=== PATIENT | female | born 1985 | race African-American/Black ===

== ENCOUNTER 2016-04-27 13:00 | Emergency (ER) | payer OTHER ==
[~2016-04-27] VITALS: Ht 147.3 cm; Wt 47.6 kg
--- NOTE | 2016-04-27 13:49 | PHYS DOC ---
Past Medical History Past Medical History: Constipation Past Surgical History: Alcohol Use: None Drug Use: Marijuana, Methamphetamine Social History Narrative: in detox x 3-4 days Adult General Chief Complaint Chief Complaint: CONSTIPATION HPI HPI 30-year-old female who states she has not had a bowel movement for the last week. She states she is passing gas but is having difficulty and straining on the toilet. She denies any blood or rectal pain. She denies any nausea or vomiting. She does state she has some mild lower pain has been there for the last several days. She can trying softeners without relief. She does state she has history of chronic constipation. 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 She denies any recent narcotic use. Review of Systems Review of Systems Constitutional: Denies fever or chills [] Eyes: Denies change in visual acuity, redness, or eye pain [] HENT: Denies nasal congestion or sore throat [] Respiratory: Denies cough or shortness of breath [] Cardiovascular: No additional information not addressed in HPI [] GI: Has abdominal pain, denies nausea, denies vomiting, denies bloody stools or diarrhea [] : Denies dysuria or hematuria [] Musculoskeletal: Denies back pain or joint pain [] Integument: Denies rash or skin lesions [] Neurologic: Denies headache, focal weakness or sensory changes [] Endocrine: Denies polyuria or polydipsia [] Current Medications Current Medications Current Medications Medications (Trade) Dose Ordered Sig/Jessica Start Time Stop Time Status Last Admin Dose Admin Sodium Biphosphate/ Sodium Phosphate (Fleet Adult) 133 ml 1X ONCE 04/27/16 14:30 04/27/16 14:31 DC 04/27/16 14:50 133 ML Allergies Allergies Allergies Coded Allergies Type Severity Reaction Last Updated Verified No Known Drug Allergies 01/18/15 No Physical Exam Physical Exam Constitutional: Well developed, well nourished, no acute distress, non-toxic appearance. [] HENT: Normocephalic, atraumatic, bilateral external ears normal, oropharynx moist, no oral exudates, nose normal. [] Eyes: PERRLA, EOMI, conjunctiva normal, no discharge. [] Neck: Normal range of motion, no tenderness, supple, no stridor. [] Cardiovascular:Heart rate regular rhythm, no murmur [] Lungs & Thorax: Bilateral breath sounds clear to auscultation [] Abdomen: Bowel sounds normal, soft, moderate lower abdominal tenderness, no masses, no pulsatile masses. [] Skin: Warm, dry, no erythema, no rash. [] Back: No tenderness, no CVA tenderness. [] Extremities: No tenderness, no cyanosis, no clubbing, ROM intact, no edema. [] Neurologic: Alert and oriented X 3, normal motor function, normal sensory function, no focal deficits noted. [] Psychologic: Affect normal, judgement normal, mood normal. [] Current Patient Data Vital Signs Vital Signs Date Time Temp Pulse Resp B/P Pulse Ox O2 Delivery O2 Flow Rate FiO2 04/27/16 15:41 88 16 124/64 100 Room Air 04/27/16 13:00 98.4 98.4 Lab Values Laboratory Tests Test 04/27/16 13:47 POC Urine HCG, Qualitative Hcg negative (Negative) EKG EKG [] Radiology/Procedures Radiology/Procedures Acute abdominal series did not demonstrate an acute abdominal issue and a moderate amount of stool as interpreted by the radiologist. Course & Med Decision Making Course & Med Decision Making Pertinent Labs and Imaging studies reviewed. (See chart for details) 30-year-old female with constipation will given an enema with an attempted symptom relief. If successful, the patient will be discharged with a stool softener and continued to drink plenty of fluids and eat a diet that is high in fiber. Her acute abdominal series did not reveal any acute findings other than moderate stool. Patient was given a Fleet enema in the department and admitted bowel movement with relief. She is given a prescription for MiraLAX and discharged without incident. Dragon Disclaimer Dragon Disclaimer This electronic medical record was generated, in whole or in part, using a voice recognition dictation system. Departure Departure Impression: Primary Impression: Constipation Disposition: ADMITTED INPATIENT Admitting Physician: Other Condition: STABLE Referrals: NO PCP (PCP) Patient Instructions: Constipation, Adult, [id number] Additional Instructions: Please take your stool softeners as needed for your constipation. Return to the ER if you develop any worsening of your symptoms. Continue to drink plenty of fluids and eat a diet high in fiber. Scripts Polyethylene Glycol 3350 (Miralax)17 Gm Powd.pack1 Pkt PO DAILY #1 PKT Prov:RAMIRO DENTON DO 04/27/16 RAMIRO DENTON DO Apr 27, 2016 13:49
--- NOTE | 2016-04-27 14:13 | RAD ---
Acute abdomen series with chest, 3 views, 04/27/2016: History: Lower abdominal pain, constipation There is a moderate amount of stool scattered throughout the colon. The abdominal gas pattern is otherwise unremarkable. No free air seen in the abdomen. There is no evidence of organomegaly or abnormal abdominal calcification. The heart size is normal. The lungs are clear. IMPRESSION: No acute abdominal abnormality is detected.
[2016-04-27] MEDS ORDERED: SODIUM PHOSPHATES 19/7GM 133 ML ENEMA. PR ONE (14:30)
[2016-04-27] MEDS ORDERED: POLY17PO5 PO (15:30)
[2016-04-27 15:41] VITALS: BP 124/64
== END 2016-04-27 15:41 | disposition home or self-care (01) ==
LOC: ER 13:00
DX: K59.09 Other constipation (principal); F15.10 Other stimulant abuse, uncomplicated; F12.10 Cannabis abuse, uncomplicated
CPT/HCPCS: 74022; 81025; 99285-25

== ENCOUNTER 2016-11-17 16:31 | Emergency (ER) | payer SELFPAY ==
[~2016-11-17] VITALS: Ht 144.8 cm; Wt 45.4 kg
[~2016-11-17 16:31] MED LIST: POLY17PO29 PO
--- NOTE | 2016-11-17 18:29 | PHYS DOC ---
Past Medical History Past Medical History: Constipation Past Surgical History: Alcohol Use: None Drug Use: Marijuana, Methamphetamine Social History Narrative: pt reports meth and marijuanna last night Adult General Chief Complaint Chief Complaint: CHEST PAIN-NON CARDIAC NATURE HPI HPI Patient is a 31 year old female who presents to the ER today secondary to sharp midsternal chest pain that started earlier today radiating to her left breast. Patient reports pain increases with deep inspiration with cough. Patient denies any pain with exertion. Patient reports no relieving position. Patient has any shortness of breath nausea vomiting diarrhea cough cold or rhinorrhea. Patient reports pain increases with palpation. Patient has any calf tenderness. Patient has any shortness of breath or hemoptysis. Patient has any family history of PE or DVT. Patient is not currently on any control pills. Patient has no family history of coronary artery disease in young age. Patient denies any history of hypertension diabetes liver longer kidney problems. Patient is not allergic to any medications. Patient has had a C- section. Patient reports she uses marijuana and methamphetamines. Patient has any alcohol. Patient does smoke tobacco. Review of systems Constitutional: Denies fever or chills Eyes: Denies change in visual acuity, redness, or eye pain All other review systems are negative except as documented in the history of present illness portion. Physical exam Constitutional: Well developed, well nourished, no acute distress, non-toxic appearance. HENT: Normocephalic, atraumatic, bilateral external ears normal, oropharynx moist, no oral exudates, nose normal. Eyes: conjunctiva normal, no discharge. Neck: Normal range of motion, no tenderness, supple, no stridor. Cardiovascular:Heart rate regular rhythm, patient was 100% reproducible tenderness to palpation to her mid sternum. Lungs & Thorax: Bilateral breath sounds clear to auscultation Abdomen: Bowel sounds normal, soft, no tenderness, no masses, no pulsatile masses. Skin: Warm, dry, Back: No tenderness, Extremities: No tenderness, no cyanosis, Neurologic: Alert and oriented X 3, normal motor function, normal sensory function, no focal deficits noted. Psychologic: Affect normal, judgement normal, mood normal. Assessment and plan EKG normal sinus rhythm with nonspecific ST-T wave abnormalities no evidence of ST elevation NV. This is a 31-year-old female who presents here today complaining of chest pain was concerned that she might be having heart disease. Patient's workup in the ER significant for a positive test. Patient is declining any further workup and she found that her previous test is positive and is requesting to be discharged home. Patient's EKG was unremarkable for any acute ischemia. Patient' s physical exam was unremarkable. Patient's pulse ox was 100% with a heart rate of 70 in the ER. Patient's respiratory distress well. Patient not present with signs or symptoms consistent with a PE, DVT, NV, dissection. Patient be discharged home in stable condition and instructed to follow-up with her primary care physician/clinic for further OB care. Allergies Allergies Allergies Coded Allergies Type Severity Reaction Last Updated Verified No Known Drug Allergies 01/18/15 No Current Patient Data Vital Signs Vital Signs Date Time Temp Pulse Resp B/P (MAP) Pulse Ox O2 Delivery O2 Flow Rate FiO2 11/17/16 17:46 82 14 111/73 (86) 100 Room Air 11/17/16 17:04 98.1 98.1 Lab Values Laboratory Tests Test 11/17/16 17:59 POC Urine HCG, Qualitative Hcg positive (Negative) EKG EKG [] Radiology/Procedures Radiology/Procedures [] Course & Med Decision Making Course & Med Decision Making Pertinent Labs and Imaging studies reviewed. (See chart for details) [] Dragon Disclaimer Dragon Disclaimer This electronic medical record was generated, in whole or in part, using a voice recognition dictation system. Departure Departure Impression: Primary Impression: Chest pain Additional Impression: Disposition: 01 HOME, SELF-CARE Condition: IMPROVED Referrals: NO PCP (PCP) Patient Instructions: ABCs of , Marijuana Abuse-Brief, Methamphetamine Abuse, Complications, Smoking Cessation Problem Qualifiers GRICEL RON MD Nov 17, 2016 18:29
[2016-11-17 18:35] VITALS: BP 99/60
--- NOTE | 2016-11-18 10:18 | EKG ---
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
== END 2016-11-17 18:35 | disposition home or self-care (01) ==
LOC: ER 16:31
DX: R07.89 Other chest pain (principal); F17.200 Nicotine dependence, unspecified, uncomplicated; Z33.1 Pregnant state, incidental
CPT/HCPCS: 81025; 93005; 99284-25

== ENCOUNTER 2019-02-05 18:48 | Emergency (ER) | payer SELFPAY ==
[~2019-02-05] VITALS: Ht 142.2 cm; Wt 46.3 kg
[2019-02-05 19:40] VITALS: BP 116/70
--- NOTE | 2019-02-05 20:18 | PHYS DOC ---
Past Medical History Past Medical History: No Pertinent History, Constipation (JET DAMIAN APRN) Past Surgical History: (JET DAMIAN APRN) Alcohol Use: None Drug Use: Marijuana, Methamphetamine (JET DAMIAN APRN) Adult General Chief Complaint Chief Complaint: VAGINAL PROBLEM HPI HPI Patient is a 33 year old female who presents with cough this been ongoing for 3 months, and vaginal discharge this been ongoing for several months. She denies any pain. She denies any fevers. (JET DAMIAN APRN) Review of Systems Review of Systems Constitutional: Denies fever or chills [] Eyes: Denies change in visual acuity, redness, or eye pain [] HENT: Denies nasal congestion or sore throat [] Respiratory: Reports cough. Denies shortness of breath. Cardiovascular: No additional information not addressed in HPI [] GI: Denies abdominal pain, nausea, vomiting, bloody stools or diarrhea [] : Reports vaginal discharge. Musculoskeletal: Denies back pain or joint pain [] Integument: Denies rash or skin lesions [] Neurologic: Denies headache, focal weakness or sensory changes [] Endocrine: Denies polyuria or polydipsia [] Complete systems were reviewed and found to be within normal limits, except as documented in this note. (JET DAMIAN APRN) Allergies Allergies Allergies Coded Allergies Type Severity Reaction Last Updated Verified No Known Drug Allergies 01/18/15 No (JET COOK DO) Physical Exam Physical Exam Constitutional: Well developed, well nourished, no acute distress, non-toxic appearance. [] HENT: Normocephalic, atraumatic, bilateral external ears normal, oropharynx moist, no oral exudates, nose normal. [] Eyes: PERRLA, EOMI, conjunctiva normal, no discharge. [] Neck: Normal range of motion, no tenderness, supple, no stridor. [] Cardiovascular:Heart rate regular rhythm, no murmur [] Lungs & Thorax: Bilateral breath sounds clear to auscultation [] Abdomen: Bowel sounds normal, soft, no tenderness, no masses, no pulsatile masses. [] Skin: Warm, dry, no erythema, no rash. [] Neurologic: Alert and oriented X 3, normal motor function, normal sensory function, no focal deficits noted. [] Psychologic: Affect normal, judgement normal, mood normal. [] (JET DAMIAN APRN) Current Patient Data Vital Signs Vital Signs Date Time Temp Pulse Resp B/P (MAP) Pulse Ox O2 Delivery O2 Flow Rate FiO2 02/05/19 19:40 98.0 88 15 116/70 (85) 96 Room Air 98.0 (JET COOK DO) EKG EKG [] (JET DAMIAN APRN) Radiology/Procedures Radiology/Procedures [] (JET DAMIAN APRN) Course & Med Decision Making Course & Med Decision Making Pertinent Labs and Imaging studies reviewed. (See chart for details) A medical screening exam was performed on this patient and the patient does not appear to be having a medical emergency. Her symptoms are not of sufficient severity and within reasonable medical probability it is unlikely the absence of immediate medical attention would result in placing the health of the individual (or, with respect to a woman, the health of the woman or her unborn child) in serious jeopardy, serious impairment to bodily functions, or serious dysfunction of any bodily organ or part. If , the patient is not in labor (JET DAMIAN APRN) Dragon Disclaimer Dragon Disclaimer This electronic medical record was generated, in whole or in part, using a voice recognition dictation system. (JET DAMIAN APRN) Departure Departure Impression: Primary Impression: Encounter for medical screening examination Disposition: HOME, SELF-CARE Condition: STABLE Referrals: NO PCP (PCP) Patient Instructions: Medical Screening Exam Additional Instructions: Thank you for visiting [facility]. We appreciate you trusting us with your care. If any additional problems come up don't hesitate to return to visit us. Please follow up with your primary care provider so they can plan additional care if needed and know about the problem that you had. If symptoms worsen come back to the Emergency Department. Any concerning symptoms that start such as chest pain, shortness of air, weakness or numbness on one side of the body, running high fevers or any other concerning symptoms return to the ER. Attending Signature Attending Signature I have reviewed the PA/MARINE MECHANIC's note and plan of care. I was available for consultation as needed during the patient's visit in the emergency department. I agree with the clinical impression, plan, and disposition. (JET COOK DO) JET DAMIAN APRN Feb 05, 2019 20:18 JET COOK DO Feb 06, 2019 01:12
== END 2019-02-05 20:10 | disposition home or self-care (01) ==
LOC: ER 18:48
DX: N89.8 Other specified noninflammatory disorders of vagina (principal); R05 Cough; K59.00 Constipation, unspecified; F12.90 Cannabis use, unspecified, uncomplicated; F15.90 Other stimulant use, unspecified, uncomplicated; Z98.890 Other specified postprocedural states
CPT/HCPCS: 99281

== ENCOUNTER 2019-02-07 08:11 | Emergency (ER) | payer SELFPAY ==
[~2019-02-07] VITALS: Ht 142.2 cm; Wt 46.3 kg
--- NOTE | 2019-02-07 09:20 | PHYS DOC ---
Past Medical History Past Medical History: Constipation Past Surgical History: , Other Additional Past Surgical Histo: HERNIA REPAIR Alcohol Use: None Drug Use: Marijuana, Methamphetamine Adult General Chief Complaint Chief Complaint: FOREIGN BODY VAGINA HPI HPI Patient is a 33 year old patient with history of constipation who presents with complaint of retained tampon. Patient states she made a homemade tampon with rolling toilet paper 10 days ago and forgot to remove it until 3 days ago after she had some discharge and tried to remove the tampon but thinks she still has part of the tampon inside. Patient complaining of foul-smelling vaginal discharge without fever and chills, nausea and vomiting, abdominal pain. Elevation denies having any new sexual partner and history of STD. Patient is with LMP of January 11 and denies . Review of Systems Review of Systems Constitutional: Denies fever or chills [] Eyes: Denies change in visual acuity, redness, or eye pain [] HENT: Denies nasal congestion or sore throat [] Respiratory: Denies cough or shortness of breath [] Cardiovascular: No additional information not addressed in HPI [] GI: Denies abdominal pain, nausea, vomiting, bloody stools or diarrhea [] : Denies dysuria or hematuria [] Musculoskeletal: Denies back pain or joint pain [] Integument: Denies rash or skin lesions [] Neurologic: Denies headache, focal weakness or sensory changes [] Endocrine: Denies polyuria or polydipsia [] All other systems were reviewed and found to be within normal limits, except as documented in this note. Allergies Allergies Allergies Coded Allergies Type Severity Reaction Last Updated Verified No Known Drug Allergies 01/18/15 No Physical Exam Physical Exam Constitutional: Well developed, well nourished, mild distress, non-toxic appearance. [] HENT: Normocephalic, atraumatic. Eyes: PERRLA, EOMI, conjunctiva normal, no discharge. [] Neck: Normal range of motion, no tenderness, supple, no stridor. [] Cardiovascular:Heart rate regular rhythm, no murmur [] Lungs & Thorax: Bilateral breath sounds clear to auscultation [] Abdomen: Bowel sounds normal, soft, no tenderness, no masses, no pulsatile masses. Vaginal exam in present of document design specialist shows normal external vagina, moderate amount of yellow colored discharge and vagina without retained tampon, no adnexal tenderness. Skin: Warm, dry, no erythema, no rash. [] Back: No tenderness, no CVA tenderness. [] Extremities: No tenderness, no cyanosis, no clubbing, ROM intact, no edema. [] Neurologic: Alert and oriented X 3, no focal deficits noted. [] Psychologic: Affect normal, judgement normal, mood normal. [] Current Patient Data Vital Signs Vital Signs Date Time Temp Pulse Resp B/P (MAP) Pulse Ox O2 Delivery O2 Flow Rate FiO2 02/07/19 08:47 97.8 56 16 121/59 (79) 98 Room Air 97.8 Lab Values Laboratory Tests Test 02/07/19 09:47 POC Urine HCG, Qualitative Hcg negative (Negative) Microbiology 02/07/19 Wet Prep - Final, Complete EKG EKG [] Radiology/Procedures Radiology/Procedures [] Course & Med Decision Making Course & Med Decision Making Pertinent Labs reviewed. (See chart for details) discharge: I've spoken with the patient and/or caregivers. I've explained the patient's condition, diagnosis and treatment plan based on information available to me at this time. I've answered the patient's and/or caregivers questions and addressed any concerns. The patient and/or caregivers have a good understanding the patient's diagnosis, condition and treatment plan as can be expected at this point. Vital signs have been stabilized. The patient's condition is stable for discharge from the emergency department. The patient will pursue further outpatient evaluation with her primary care provider or other designated consulting physician as outlined in the discharge instructions. Patient and/or caregivers are agreeable to this plan of care and follow-up instructions have been explained in detail. The patient and/or caregivers have received these instructions in written format and expressed understanding of these discharge instructions. The patient and her caregivers are aware that if any significant change in condition or worsening of symptoms should prompt him to immediately return to this of the closest emergency department. If an emergent department is not readily available I would encourage him to call 911. Mary Beth Disclaimer Mary Beth Disclaimer This electronic medical record was generated, in whole or in part, using a voice recognition dictation system. Departure Departure Impression: Primary Impression: Bacterial vaginitis Disposition: HOME, SELF-CARE (at 1023) Condition: STABLE Referrals: NO PCP (PCP) Patient Instructions: Bacterial Vaginosis Additional Instructions: Drink plenty of liquids Follow-up with your primary care physician in 3-5 days Return to ER if not getting better Thank you for visiting [facility]. We appreciate you trusting us with your care. If any additional problems come up don't hesitate to return to visit us. Please follow up with your primary care provider so they can plan additional care if needed and know about the problem that you had. If symptoms worsen come back to the Emergency Department. Any concerning symptoms that start such as chest pain, shortness of air, weakness or numbness on one side of the body, running high fevers or any other concerning symptoms return to the ER. Scripts Metronidazole (FLAGYL) 500 Mg Tablet 1 TAB PO BID, #14 TAB Prov: BECKY COLMENARES MD 02/07/19 BECKY COLMENARES MD Feb 07, 2019 09:20
[2019-02-07] MEDS ORDERED: METR500T PO (10:24)
[2019-02-07 10:45] VITALS: BP 119/62
[2019-02-10 04:08] LABS: GC PROBE Negative (Negative)
== END 2019-02-07 10:48 | disposition home or self-care (01) ==
LOC: ER 08:11
DX: N76.0 Acute vaginitis (principal); K59.00 Constipation, unspecified; F12.90 Cannabis use, unspecified, uncomplicated; F14.90 Cocaine use, unspecified, uncomplicated; Z98.890 Other specified postprocedural states
CPT/HCPCS: 81025; 87491; 87591; 99284; Q0111

== ENCOUNTER 2021-03-02 06:23 | Emergency (ER) | payer SELFPAY ==
[~2021-03-02] VITALS: Ht 144.8 cm; Wt 43.1 kg
[~2021-03-02 06:23] MED LIST changes: +METR500T PO
[2021-03-02] MEDS ORDERED: IV NORMAL SALINE 1000ML BAG 1,000 ML IV ONE (07:45)
[2021-03-02] MEDS ORDERED: IPRATRPIUM/ALBUTEROL 0.5/2.5MG 3 ML NEBU. NEB ONE (07:45)
[2021-03-02 07:52] VITALS: BP 111/72
[2021-03-02 08:03] LABS: BILIRUBIN,URINE NEGATIVE (NEG); CLARITY,URINE CLEAR; COLOR,URINE YELLOW; NITRITE,URINE NEGATIVE (NEG); PH,URINE 7.5 (<5.0-8.0); PROTEIN,URINE NEGATIVE (NEG-TRACE); UROBILINOGEN,URINE 0.2 mg/dL (0.2 mg/dL)
[2021-03-02 08:10] LABS: BACTERIA,URINE FEW /HPF (0-FEW)
[2021-03-02 08:11] LABS: RBC,URINE OCC /HPF (0-2)
[2021-03-02 08:15] LABS: BASO # 0.1 x10^3/uL (0.0-0.2); BASO % 1 % (0-3); EOS % 0 % (0-3); HEMATOCRIT 37.9 % (36.0-47.0); HEMOGLOBIN 12.9 g/dL (12.0-15.5); LYMPH # 1.3 x10^3/uL (1.0-4.8); LYMPH % 12 % (24-48); MEAN CORPUSCULAR HEMOGLOBIN 32 pg (25-35); MEAN CORPUSCULAR HGB CONC 34 g/dL (31-37); MEAN CORPUSCULAR VOLUME 93 fL (79-100); MONO # 0.5 x10^3/uL (0.0-1.1); MONO % 5 % (0-9); NEUT # 8.7 x10^3/uL (1.8-7.7); NEUT % 82 % (31-73); PLATELET COUNT 259 x10^3/uL (140-400); RED BLOOD COUNT 4.06 x10^6/uL (3.50-5.40); RED CELL DISTRIBUTION WIDTH 13.9 % (11.5-14.5); WHITE BLOOD COUNT 10.7 x10^3/uL (4.0-11.0)
--- NOTE | 2021-03-02 08:22 | RAD ---
XR CHEST 1V History: Short of air. Comparison: Acute abdominal series 04/27/2016 Technique: Portable AP radiograph of the chest. Findings: Adequate inflation. Trace bilateral effusions. Bilateral basilar infiltrates. The cardiac mediastinal silhouette and pulmonary vasculature are within normal limits. Osseous structures and soft tissues a re unremarkable. Impression: 1. Subtle bilateral basilar infiltrates with trace bilateral pleural effusions. Electronically signed by: Eddie Escoto MD (03/02/2021 8:20 AM) [facility]
[2021-03-02 08:31] LABS: INFLUENZA A PATIENT NEGATIVE (NEGATIVE); INFLUENZA B PATIENT NEGATIVE (NEGATIVE)
[2021-03-02 08:33] LABS: CALCIUM 8.9 mg/dL (8.5-10.1); CREATININE 0.5 mg/dL (0.6-1.0); GFR 171.9; POTASSIUM 3.9 mmol/L (3.5-5.1)
[2021-03-02 08:39] LABS: ALBUMIN 3.1 g/dL (3.4-5.0); ALBUMIN/GLOBULIN RATIO 0.7 (1.0-1.7); TOTAL BILIRUBIN 0.2 mg/dL (0.2-1.0); TOTAL PROTEIN 7.5 g/dL (6.4-8.2)
[2021-03-02] MEDS ORDERED: ALBU2.5V8 INH (09:45)
[2021-03-02] MEDS ORDERED: AZIT250T PO (09:45)
--- NOTE | 2021-03-02 09:45 | PHYS DOC ---
Past Medical History Past Medical History: Constipation Past Surgical History: , Other Additional Past Surgical Histo: HERNIA REPAIR Smoking Status: Current Every Day Smoker Alcohol Use: None Drug Use: Marijuana, Methamphetamine Adult General Chief Complaint Chief Complaint: SHORTNESS OF BREATH HPI HPI Patient is a 35 year old patient presenting to the emergency department for evaluation of multiple symptoms including cough congestion shortness of breath generalized malaise fatigue and frequent urination. Patient says that her cough has been productive of a yellowish sputum. She says that she has had no measured fevers. The shortness of breath can be present both at rest or exertion. She says her last menstrual cycle was December 29 and thinks that she could be . She is G9, P8 after her urine test did confirm positive for . She is coughing frequently but is in no acute distress with normal vital signs. Review of Systems Review of Systems Constitutional: Denies fever or chills [] Eyes: Denies change in visual acuity, redness, or eye pain [] HENT: Denies nasal congestion or sore throat [] Respiratory: + cough, shortness of breath [] Cardiovascular: No additional information not addressed in HPI [] GI: Denies abdominal pain, nausea, vomiting, bloody stools or diarrhea [] : Denies dysuria or hematuria [] Musculoskeletal: Denies back pain or joint pain [] Integument: Denies rash or skin lesions [] Neurologic: Denies headache, focal weakness or sensory changes [] Endocrine: Denies polyuria or polydipsia [] All other systems were reviewed and found to be within normal limits, except as documented in this note. Current Medications Current Medications Current Medications Medications (Trade) Dose Ordered Sig/Jessica Start Time Stop Time Status Last Admin Dose Admin Albuterol/ Ipratropium (Duoneb) 3 ml 1X ONCE 03/02/21 07:45 03/02/21 07:47 DC 03/02/21 08:46 3 ML Sodium Chloride 1,000 ml @ 1,000 mls/hr 1X ONCE 03/02/21 07:45 03/02/21 08:44 DC 03/02/21 07:45 1,000 MLS/HR Allergies Allergies Allergies Coded Allergies Type Severity Reaction Last Updated Verified No Known Drug Allergies 01/18/15 No Physical Exam Physical Exam Constitutional: Well developed, well nourished, no acute distress, non-toxic appearance. [] HENT: Normocephalic, atraumatic, bilateral external ears normal, oropharynx moist, no oral exudates, nose normal. [] Eyes: PERRLA, EOMI, conjunctiva normal, no discharge. [] Neck: Normal range of motion, no tenderness, supple, no stridor. [] Cardiovascular:Heart rate regular rhythm, no murmur [] Lungs & Thorax: Bilateral breath sounds coarse but with good aeration bilaterally Abdomen: Bowel sounds normal, soft, no tenderness, no masses, no pulsatile masses. [] Skin: Warm, dry, no erythema, no rash. [] Back: No tenderness, no CVA tenderness. [] Extremities: No tenderness, no cyanosis, no clubbing, ROM intact, no edema. [] Neurologic: Alert and oriented X 3, normal motor function, normal sensory function, no focal deficits noted. [] Psychologic: Affect normal, judgement normal, mood normal. [] Current Patient Data Vital Signs Vital Signs Date Time Temp Pulse Resp B/P (MAP) Pulse Ox O2 Delivery O2 Flow Rate FiO2 03/02/21 08:46 95 Room Air 03/02/21 07:52 97.5 87 20 111/72 (85) 97.5 Lab Values Laboratory Tests Test 03/02/21 07:40 03/02/21 07:50 03/02/21 08:00 Urine Collection Type Unknown Urine Color Yellow Urine Clarity Clear Urine pH 7.5 (<5.0-8.0) Urine Specific [place] 1.020 (1.000-1.030) Urine Protein Negative mg/dL (NEG-TRACE) Urine Glucose (UA) Negative mg/dL (NEG) Urine Ketones (Stick) Negative mg/dL (NEG) Urine Blood Negative (NEG) Urine Nitrite Negative (NEG) Urine Bilirubin Negative (NEG) Urine Urobilinogen Dipstick 0.2 mg/dL (0.2 mg/dL) Urine Leukocyte Esterase Negative (NEG) Urine RBC Occ /HPF (0-2) Urine WBC 1-4 /HPF (0-4) Urine Squamous Epithelial Cells Many /LPF Urine Bacteria Few /HPF (0-FEW) Urine Mucus Mod /LPF Influenza Type A Antigen Negative (NEGATIVE) Influenza Type B Antigen Negative (NEGATIVE) SARS-CoV-2 Antigen (Rapid) Negative (NEGATIVE) POC Urine HCG, Qualitative Hcg positive (Negative) White Blood Count 10.7 x10^3/uL (4.0-11.0) Red Blood Count 4.06 x10^6/uL (3.50-5.40) Hemoglobin 12.9 g/dL (12.0-15.5) Hematocrit 37.9 % (36.0-47.0) Mean Corpuscular Volume 93 fL (79-100) Mean Corpuscular Hemoglobin 32 pg (25-35) Mean Corpuscular Hemoglobin Concent 34 g/dL (31-37) Red Cell Distribution Width 13.9 % (11.5-14.5) Platelet Count 259 x10^3/uL (140-400) Neutrophils (%) (Auto) 82 % (31-73) H Lymphocytes (%) (Auto) 12 % (24-48) L Monocytes (%) (Auto) 5 % (0-9) Eosinophils (%) (Auto) 0 % (0-3) Basophils (%) (Auto) 1 % (0-3) Neutrophils # (Auto) 8.7 x10^3/uL (1.8-7.7) H Lymphocytes # (Auto) 1.3 x10^3/uL (1.0-4.8) Monocytes # (Auto) 0.5 x10^3/uL (0.0-1.1) Eosinophils # (Auto) 0.0 x10^3/uL (0.0-0.7) Basophils # (Auto) 0.1 x10^3/uL (0.0-0.2) D-Dimer (Tash) 0.33 ug/mlFEU (0.00-0.50) Sodium Level 138 mmol/L (136-145) Potassium Level 3.9 mmol/L (3.5-5.1) Chloride Level 100 mmol/L (98-107) Carbon Dioxide Level 27 mmol/L (21-32) Anion Gap 11 (6-14) Blood Urea Nitrogen 10 mg/dL (7-20) Creatinine 0.5 mg/dL (0.6-1.0) L Estimated GFR (Cockcroft-Gault) 171.9 BUN/Creatinine Ratio 20 (6-20) Glucose Level 76 mg/dL (70-99) Calcium Level 8.9 mg/dL (8.5-10.1) Total Bilirubin 0.2 mg/dL (0.2-1.0) Aspartate Amino Transferase (AST) 22 U/L (15-37) Alanine Aminotransferase (ALT) 27 U/L (14-59) Alkaline Phosphatase 83 U/L (46-116) ZB-Vbs-X-Type Natriuretic Peptide 90 pg/mL (0-124) Total Protein 7.5 g/dL (6.4-8.2) Albumin 3.1 g/dL (3.4-5.0) L Albumin/Globulin Ratio 0.7 (1.0-1.7) L Laboratory Tests 03/02/21 08:00 Laboratory Tests 03/02/21 08:00 EKG EKG [] Radiology/Procedures Radiology/Procedures Chest x-ray shows possible early infiltrate Course & Med Decision Making Course & Med Decision Making Patient with findings of possible early pneumonia on her chest x-ray but her oxygen saturation is 97% and she says she feels better after treatment here in the emergency department. Patient denies any abdominal pain or vaginal bleeding I told her she needs to follow-up with an auto heater mechanic for her positive status but there is no associated complications with her at this time. Patient is requesting to go home given she feels much better. Patient will be started on Zithromax and I will prescribe her an albuterol inhaler and told her to follow with a primary care provider within 2 to 3 days for recheck and come back to emergency department sooner with worsening pain shortness of breath or other general concerns. Patient aware and agreeable with plan and verbalized understanding of the above instructions. Dragon Disclaimer Dragon Disclaimer This electronic medical record was generated, in whole or in part, using a voice recognition dictation system. Departure Departure Impression: Primary Impression: Pneumonia Additional Impression: Positive test Disposition: HOME / SELF CARE / HOMELESS Condition: IMPROVED Referrals: NO PCP (PCP) Patient Instructions: Pneumonia, Adult, [id number] Scripts Albuterol Sulfate (PROAIR HFA INHALER) 8.5 Gm Hfa.aer.ad 1 PUFF INH Q4HRS PRN for SHORTNESS OF BREATH, #1 INHALER 0 Refills Prov: FCO TRUJILLO DO 03/02/21 Azithromycin (ZITHROMAX) 250 Mg Tablet 1 PKG PO UD, #6 TAB 2 tabs today then 1 tab qd after today Prov: FCO TRUJILLO DO 03/02/21 Problem Qualifiers Primary Impression: Pneumonia Pneumonia type: due to unspecified organism Laterality: unspecified laterality Lung location: unspecified part of lung Qualified Codes: J18.9 - Pneumonia, unspecified organism FCO TRUJILLO DO Mar 02, 2021 09:45
--- NOTE | 2021-03-06 13:53 | NUR ---
IP: Attempted a second time to contact pt concerning covid results. No answer, left a voicemail to return the call.
== END 2021-03-02 09:52 | disposition home or self-care (01) ==
LOC: ER 06:23
DX: O99.519 Diseases of the respiratory system complicating pregnancy, unspecified trimester (principal); J18.9 Pneumonia, unspecified organism; O99.330 Smoking (tobacco) complicating pregnancy, unspecified trimester; Z20.822 Contact with and (suspected) exposure to COVID-19; Z3A.00 Weeks of gestation of pregnancy not specified
CPT/HCPCS: 36415; 71045; 80053; 81001; 81025; 83880; 85025; 85379; 87428; 94640; 96360; 99284; J7030; U0003; U0005

== ENCOUNTER → 2021-07-05 | Outpatient (CLI) | payer OTHER ==
[~2021-07-05] MED LIST changes: +ALBU2.5V8 INH; +AZIT250T PO
--- NOTE | 2021-07-05 15:59 | RAD ---
Study: US OB >14 WEEKS Clinical Indication: Second trimester screen Comparison: None. Technique: Multiple grayscale images, color Doppler, and M-mode images of the uterus are obtained. Findings: Single intrauterine gestation in cephalic presentation. The placenta is posterior fundal in location without evidence of placenta previa. The amount of amniotic fluid appears appropriate. Cervical lengt h is 4.6 cm. Biometrical data: BPD = 6.74 cm for 27 weeks 1 days. HC = 24.87 cm for 27 weeks 0 days. AC = 24.07 cm for 28 weeks 2 days. FL = 4.53 cm for 25 weeks 0 days. CI ratio = 74.8. HC/AC ratio = 1.03. (Normal range 1.04-1.22) FL/HC ratio = 18.2. FL/AC ratio = 18.8. (Normal range 20.0-24.0) Overall, the estimated sonographic gestational age is 26 weeks 6 days for an estimated date of delive ry of 10/05/2021. The clinical estimated date of delivery is 10/18/2021. Estimated weight is 101 3 +/- 150 grams. A 4 chamber heart is identified with positive cardiac activity. The estimated heart rate is 139 beats per minute. Bilateral upper and lower extremities are identified. There is a three-vessel cord with cord insertion visualized. stomach and urinary bladder are identified. Both kidneys are seen. The spine and brain are unremarkable. No gross anatomic abnormalities are identified. Impression: 1. Single live intrauterine gestation with estimated sonographic gestational age of 26 weeks 6 days corresponding to an estimated delivery date of 10/05/2021. Clinically estimated delivery date of 2021. weight estimate of 1013 +/- 150 grams which is at the 76th percentile. 2. Head circumference to abdominal circumference ratio falling which is below normal range. Addition ally femur length to abdominal circumference following well below normal range. Recommend maternal-fe sadia medicine evaluation. 3. Ultrasound estimated gestational age of 26 weeks 6 days is 13 days ahead of clinical age by LMP. 4. Electronically signed by: Eddie Escoto MD (07/05/2021 11:22 AM) [id number]
== END ==
LOC: US 07:33
PROVIDERS: ATTEND Obstetrics & Gynecology
DX: Z34.92 Encounter for supervision of normal pregnancy, unspecified, second trimester (principal)
CPT/HCPCS: 76805